=== PATIENT | female | born 1965 | race Caucasian/White ===

== ENCOUNTER → 2016-08-23 | Day surgery (SDC) | payer OTHER ==
[~2016-08-23] VITALS: Ht 160 cm; Wt 67.1 kg
[~2016-08-23] MED LIST: ATIVAN0.5 M1 PO; CRESTOR5 M1 PO; LISINOPRIL20 M1 PO; TRIAMTERENE-HC1 EAC3 PO
--- NOTE | 2016-08-23 11:44 | Operative Report ---
Operative/Inv Procedure Report Surgery Date: 08/23/16 Name of Procedure: Nasal septal reconstruction Inferior turbinate submucous resection, bilateral Middle turbinate reduction, bilateral Pre-Operative Diagnosis: 1. Deviated nasal septum 2. Inferior turbinate hypertrophy 3. Middle turbinate hypertrophy Post-Operative Diagnosis: Same Estimated Blood Loss: less than 50ml Surgeon/Spotter Driver: MARCELA DEVRIES MD Anesthesia: general endotracheal tube Drains: none Specimens: Septum and turbinates Complications: Non- Condition: Stable on leaving the OR Operative Indication: Difficulty breathing through the nose, nasal congestion x several years Chronic sinusitis x years Patient treated with multiple antibiotics, antihistamines, decongestants, steroid and antihistamine nasal sprays with limited improvement, with improvement but then recurrence Frequent facial pressures and headaches Operative/Procedure Note Note: The patient was brought to the operating room. Placed on the operating room table in supine position. At first timeout was performed identifying the patient, ID numbers and procedure to be performed. Next general oral endotracheal anesthesia was induced. Endotracheal tube was secured with tape over the left corner of the lip. Operating room table was rotated 90 to the left and patient was positioned for septal surgery with head slightly hyperextended and rotated to the right. At first vasoconstriction was carried by application of Afrin spray on cottonoid pledgets. Next nasal septum was injected with 1% lidocaine with 1: 100,000 epinephrine approximately 6 mL was injected on the left and another 6 mL on the right. This followed by placement of cotton pledgets saturated with cocaine flakes and Afrin spray. Patient's face was then prepped and draped in routine manner and surgery was performed. A left hemitransfixion incision was placed and anterior mucoperichondrial tunnel was elevated followed by posterior mucoperiosteal tunnel. Bony cartilaginous junction was identified and and mucoperiosteal tunnel was elevated on the contralateral side. And anteriorly and superior there was septal deviation to the left. Posteriorly there was vomerine bone deviation to the left. In addition there was a prominent maxillary crest protrusion to the left. Quadrangular cartilage was from the perpendicular plate of the ethmoid. Some of the quadrangular cartilage was then shaved. Perpendicular plate of the ethmoid was removed in a piecemeal manner until the superior obstruction was relieved. Next quadrangular cartilage was shaved until the projection to the left was relieved. Next posteriorly vomerine bone was addressed. The protrusion to the left was removed in a piecemeal manner. The remainder of the vomerine bone protrusion was reduced by fracturing the bone and down repositioning it to the right. Now inferior obstruction was addressed quadrangular cartilage dissection along its attachment to the maxillary crest was removed in a piecemeal manner. This followed by trimming of the prominent maxillary crest and removal of the maxillary bone. Septoplasty was completed. An incision was placed in the septum posteriorly in the middle which was to serve as a drainage hole. Septoplasty incision was closed with 5-0 chromic simple sutures. Followed by a mattress sutures with 5-0 chromic. Please note that the entire septoplasty was carried with 0 scope as well as directed visualization with a headlight. Next the left middle turbinate was reduced along its inferior border with Gruenwald forceps. Followed by right middle turbinate reduction. This improved ventilation of the middle meatus. Next inferior turbinates were then in and outfractured and excised in submucous manner. This was done with 0 scope visualization. This allowed for better ventilation along the inferior meatus. Surgery was completed. Nasal packing was applied next. Nasal fossa was packed with Telfa saturated with Bactroban ointment. Telfa was stitched anteriorly with 2-0 silk to prevent posterior displacement. Helotene slurry was then injected into the left nasal fossa followed by right nasal fossa to further promote vasoconstriction. Surgery was completed. Stomach was suctioned by placement of oral gastric tube. The patient was reawakened, extubated and taken to the recovery room in good condition. There were no complications. Estimated blood was was 30 mL. Findings: 1. Nasal septum- deviated to the left anterior superior quadrangular cartilage and perpendicular plate of the ethmoid, posterior vomerine bone spurring and deviation, inferior maxillary crest projection to the left 2. Middle turbinates- hypertrophy with obstruction of the middle meatus bilateral 3. Inferior Turbinates- hypertrophy with obstruction of the inferior meatus Discharge Disposition: PACU
== END ==
LOC: STS 01:35
DX: J34.2 Deviated nasal septum (principal); J34.3 Hypertrophy of nasal turbinates; J32.9 Chronic sinusitis, unspecified; Z87.891 Personal history of nicotine dependence; R51 Headache; I10 Essential (primary) hypertension; L40.9 Psoriasis, unspecified
CPT/HCPCS: 88304; 88305; J0690; J1100; J2250; J2405